=== PATIENT | female | born 1995 | race Caucasian/White ===

== ENCOUNTER 2017-12-06 08:04 | Inpatient (IN) | payer SELFPAY ==
[2017-12-06] VITALS (27 sets, daily range): BP systolic 111–157; BP diastolic 57–94
[~2017-12-06] VITALS: Ht 162.6 cm; Wt 81.8 kg
[2017-12-06] MEDS ORDERED: EXPECTA PRENAT1 EACH PO (09:11)
[2017-12-06 09:35] LABS: BASOPHIL (%) 0.3 % (0-1); EOSINOPHIL (%) 0.4 % (0-5); HEMATOCRIT 38.7 % (36.0-46.0); HEMOGLOBIN 12.9 G/DL (11.9-15.5); IMMATURE GRANULOCYTE (%) 0.5 % (0.0-0.7); LYMPHOCYTE (%) 18.7 % (15-42); LYMPHOCYTE COUNT 2.1 K/uL (1.0-2.8); MCH 27.6 PG (29.0-34.0); MCHC 33.3 G/DL (30.0-36.0); MCV 82.9 FL (83-99); MONOCYTE (%) 5.3 % (3-12); MONOCYTE COUNT 0.6 K/uL (0-0.8); NEUTROPHIL (%) 74.8 % (45-76); NEUTROPHIL COUNT 8.2 K/uL (1.8-6.4); PLATELET COUNT 230 K/uL (156-360); RBC DIS.WIDTH-CV 13.3 % (11.8-14.6); RBC DIS.WIDTH-SD 39.9 % (39-53); RED BLOOD COUNT 4.67 M/uL (3.80-5.20); WHITE BLOOD COUNT 10.9 K/uL (4.1-10.2)
[2017-12-06 09:53] LABS: INTER. NORMALIZED RATIO 0.9; PTT 27.3 SEC (25-37)
[2017-12-06 09:57] LABS: ALBUMIN 3.3 G/DL (3.2-4.8); ALKALINE PHOSPHATASE 160 IU/L (3-129); ALT (GPT) 7 IU/L (3-49); AST (GOT) 13 IU/L (2-34); CHLORIDE 107 MEQ/L (99-109); CREATININE 0.7 MG/DL (0.6-1.3); GFR ESTIMATE (CALCULATED) > 59 mL/min/; GLUCOSE 79 mg/dL (70-99); LACTATE DEHYDROGENASE 144 IU/L (20-246); POTASSIUM 4.3 MEQ/L (3.7-5.4); SODIUM 139 MEQ/L (136-147); TOTAL PROTEIN 5.7 G/DL (6.4-8.3); UREA NITROGEN (BUN) 9 mg/dL (9-23); URIC ACID 6.2 mg/dL (3.1-9.2)
[2017-12-06 10:02] LABS: TOTAL BILIRUBIN 0.4 MG/DL (0.0-1.0)
[2017-12-06 10:12] LABS: AMPHETAMINE NEGATIVE (500 ng/mL); BARBITURATES NEGATIVE (200 ng/mL); BENZODIAZEPINES NEGATIVE (150 ng/mL); BUPRENORPHINE NEGATIVE (10 ng/mL); COCAINE NEGATIVE (150 ng/mL); METHADONE NEGATIVE (200 ng/mL); METHAMPHETAMINE NEGATIVE (500 ng/mL); OPIATES (MORPHINE) NEGATIVE (100 ng/mL); OXYCODONE NEGATIVE (100 ng/mL); PHENCYCLIDINE NEGATIVE (25 ng/mL); PROPOXYPHENE NEGATIVE (300 ng/mL); THC CANNABINOIDS NEGATIVE (50 ng/mL); TRICYCLIC ANTIDEPRESSANTS NEGATIVE (300 ng/mL)
[2017-12-06 10:48] LABS: FIBRINOGEN 365 mg/dL (150-450)
[2017-12-07] VITALS (12 sets, daily range): BP systolic 127–151; BP diastolic 77–94
[2017-12-08] VITALS (7 sets, daily range): BP systolic 127–141; BP diastolic 79–97
[2017-12-08 06:16] LABS: BASOPHIL (%) 0.4 % (0-1); BASOPHIL COUNT 0.1 K/uL (0-0.1); EOSINOPHIL (%) 0.9 % (0-5); EOSINOPHIL COUNT 0.1 K/uL (0-0.3); HEMATOCRIT 33.6 % (36.0-46.0); HEMOGLOBIN 11.1 G/DL (11.9-15.5); IMMATURE GRANULOCYTE (%) 0.7 % (0.0-0.7); LYMPHOCYTE COUNT 2.5 K/uL (1.0-2.8); MCH 28.1 PG (29.0-34.0); MCV 85.1 FL (83-99); MONOCYTE COUNT 0.8 K/uL (0-0.8); NEUTROPHIL COUNT 10.3 K/uL (1.8-6.4); PLATELET COUNT 164 K/uL (156-360); RBC DIS.WIDTH-CV 13.8 % (11.8-14.6); RBC DIS.WIDTH-SD 42.9 % (39-53); RED BLOOD COUNT 3.95 M/uL (3.80-5.20); WHITE BLOOD COUNT 13.9 K/uL (4.1-10.2)
[2017-12-08] MEDS ORDERED: NIFEDIPINE ER30 MG PO (18:13)
== END 2017-12-08 18:30 | disposition home or self-care (01) | DRG 775 ==
LOC: LDRP-OP 08:04 → 2WEST 08:07 → LDRP-OP 23:12 → 2WEST 12-07 00:39 → LDRP-OP 01-01 13:33
PROVIDERS: Advanced Practice Midwife
PROC: 3E0R3BZ Introduction of Anesthetic Agent into Spinal Canal, Percutaneous Approach (ICD-10-PCS; 2017-12-06)
PROC: 00HU33Z Insertion of Infusion Device into Spinal Canal, Percutaneous Approach (ICD-10-PCS; 2017-12-06)
PROC: 3E0P7VZ Introduction of Hormone into Female Reproductive, Via Natural or Artificial Opening (ICD-10-PCS; 2017-12-06)
PROC: 10907ZC Drainage of Amniotic Fluid, Therapeutic from Products of Conception, Via Natural or Artificial Opening (ICD-10-PCS; 2017-12-06)
PROC: 0KQM0ZZ Repair Perineum Muscle, Open Approach (ICD-10-PCS; principal; 2017-12-07)
PROC: 0UQMXZZ Repair Vulva, External Approach (ICD-10-PCS; principal; 2017-12-07)
PROC: 10E0XZZ Delivery of Products of Conception, External Approach (ICD-10-PCS; principal; 2017-12-07)
DX: O70.1 Second degree perineal laceration during delivery (principal); O70.0 First degree perineal laceration during delivery; O77.0 Labor and delivery complicated by meconium in amniotic fluid; O69.1XX0 Labor and delivery complicated by cord around neck, with compression, not applicable or unspecified; O13.4 Gestational [pregnancy-induced] hypertension without significant proteinuria, complicating childbirth; O48.0 Post-term pregnancy; O99.214 Obesity complicating childbirth; E66.3 Overweight; Z68.24 Body mass index [BMI] 24.0-24.9, adult; Z91.040 Latex allergy status; Z3A.40 40 weeks gestation of pregnancy; Z37.0 Single live birth
CPT/HCPCS: 80053; 82570; 83615; 84156; 84550; 85025; 85384; 85610; 85730; C1755; G0378; J0595; J3010; J3105; J7120